=== PATIENT | male | born 1950 | race Caucasian/White ===

== ENCOUNTER 2021-07-05 10:43 | Day surgery (SDC) | payer MEDICARE ==
[~2021-07-05] VITALS: Ht 190.5 cm; Wt 120.3 kg
[2021-07-05] MEDS ORDERED: LASIX 40MG TABL40 MG PO (11:37)
[2021-07-05] MEDS ORDERED: LOTENSIN HCT 201 TA1 PO (11:37)
[2021-07-05] MEDS ORDERED: ALDACTONE50 MG PO (11:37)
[2021-07-05 11:38] VITALS: BP 106/57; PULSE 79; TEMP 97.5
[2021-07-05 12:20] VITALS: BP 87/50; PULSE 73
--- NOTE | 2021-07-05 12:20 | NUR ---
Patient returns to [facility] per cart and transfers from cart to recliner with two person assist. IV fluids infusing. Drinking water and eating applesauce. family in room. Call light in reach. Temp 97.0
[2021-07-05 12:35] VITALS: BP 105/92; PULSE 73
--- NOTE | 2021-07-05 12:35 | NUR ---
Resting. Offers no complaints with swallowing. Himanshu continue to monitor blood pressure. Family left to get lunch.
[2021-07-05 12:50] VITALS: BP 105/92; PULSE 73
--- NOTE | 2021-07-05 12:50 | NUR ---
Continues to rest and await family to return.
[2021-07-05 13:05] VITALS: BP 115/79; PULSE 63
--- NOTE | 2021-07-05 13:05 | NUR ---
Dr. Salazar in the room and talks with patient. All questions answered. IV discontinued and site is free of redness. Awaits ride.
--- NOTE | 2021-07-05 14:00 | NUR ---
Patient dismissed to home driven by family. Taken to the front door per wheelchair and assisted into vehicle with instructions in hand.
== END 2021-07-05 14:00 | disposition home or self-care (01) ==
LOC: SDCO 10:43
DX: K74.60 Unspecified cirrhosis of liver (principal); I85.10 Secondary esophageal varices without bleeding; K29.30 Chronic superficial gastritis without bleeding; E78.5 Hyperlipidemia, unspecified; E11.9 Type 2 diabetes mellitus without complications; Z79.899 Other long term (current) drug therapy; I10 Essential (primary) hypertension; M19.90 Unspecified osteoarthritis, unspecified site; E66.9 Obesity, unspecified
CPT/HCPCS: J2704; J7030